=== PATIENT | female | born 1990 ===

== ENCOUNTER 2017-10-07 19:12 | Emergency (ER) | payer OTHER ==
[~2017-10-07] VITALS: Ht 157.5 cm; Wt 79.4 kg
[~2017-10-07 19:12] MED LIST: Percocet 5-3251 EACH PO
[2017-10-07 20:50] LABS: BASOPHILS ABSOLUTE AUTO 0.06 K/mm3 (0.00-0.23); BASOPHILS PERCENT AUTO 1 % (0-2); EOSINOPHILS ABSOLUTE AUTO 0.23 K/mm3 (0.00-0.68); EOSINOPHILS PERCENT AUTO 2 % (0-6); Hematocrit 42.5 % (33.0-51.0); Hemoglobin 14.3 g/dL (11.5-16.0); IMMATURE GRAN ABSOLUTE AUTO 0.03 K/mm3 (0.00-0.10); IMMATURE GRAN PERCENT AUTO 0 % (0-1); LYMPHOCYTES ABSOLUTE AUTO 3.23 K/mm3 (0.84-5.20); LYMPHOCYTES PERCENT AUTO 28 % (21-46); MONOCYTES ABSOLUTE AUTO 0.62 K/mm3 (0.16-1.47); MONOCYTES PERCENT AUTO 5 % (4-13); Mean Corpuscular HGB 29.3 pg (26.0-34.0); Mean Corpuscular HGB Conc 33.6 g/dL (31.5-36.5); Mean Corpuscular Volume 87 fL (80-100); Mean Platelet Volume 9.9 fL (9.1-12.4); NEUTROPHILS ABSOLUTE AUTO 7.23 K/mm3 (1.96-9.15); NEUTROPHILS PERCENT AUTO 64 % (41-73); Platelet Count 283 K/mm3 (150-400); RDW Coefficient Variation 12.9 % (11.7-14.2); RDW Standard Deviation 41.1 fL (35.1-46.3); Red Blood Cell Count 4.88 M/mm3 (3.80-5.20)
[2017-10-07 21:09] LABS: Alanine Aminotransfer (ALT/SGP 35 U/L (12-78); Albumin, Blood 3.9 g/dL (3.4-5.0); Alk Phos 101 U/L (50-136); Anion Gap 7 mmol/L (6-16); Aspartate Aminotrans (AST/SGOT 24 U/L (12-37); Bilirubin, Total 0.2 mg/dL (0.1-1.0); Blood Urea Nitrogen 8 mg/dL (8-24); CO2, Blood 24 mmol/L (21-32); Calcium, Blood 8.8 mg/dL (8.5-10.1); Chloride, Blood 110 mmol/L (98-108); Creatinine, Blood 0.67 mg/dL (0.40-1.00); Globulin, Blood 3.9 g/dL (2.2-4.0); Glomerular Filtration Rate >60 (60-); Glucose, Blood 75 mg/dL (70-99); Potassium, Blood 3.6 mmol/L (3.5-5.5); Sodium, Blood 141 mmol/L (136-145); Total Protein, Blood 7.8 g/dL (6.4-8.2)
== END 2017-10-07 23:02 | disposition home or self-care (01) ==
LOC: ER 19:12
PROVIDERS: Emergency Medicine
DX: R10.31 Right lower quadrant pain (principal); R39.9 Unspecified symptoms and signs involving the genitourinary system
CPT/HCPCS: 36415; 74176; 76830; 76856; 80053; 81000; 81025; 85025; 96374; 96375; 99284; J1170; J2405; J7030

== ENCOUNTER → 2021-11-05 | Outpatient (CLI) | payer OTHER ==
[2021-11-07 15:11] LABS: CHLAMYDIA TRACHOMATIS, NAA Negative (Negative)
== END | disposition home or self-care (01) ==
LOC: LAB SHORT 17:02 → LAB 17:02
PROVIDERS: Family Medicine
DX: Z01.419 Encounter for gynecological examination (general) (routine) without abnormal findings (principal); Z11.3 Encounter for screening for infections with a predominantly sexual mode of transmission
CPT/HCPCS: 87491; 87591; G0123

== ENCOUNTER 2022-03-03 21:55 | Emergency (ER) | payer OTHER ==
[~2022-03-03] VITALS: Ht 157.5 cm; Wt 81.7 kg
== END 2022-03-04 04:35 | disposition home or self-care (01) ==
LOC: ER 21:55
DX: H53.9 Unspecified visual disturbance (principal)
CPT/HCPCS: 70450; J1790; J1885

== ENCOUNTER 2022-05-26 12:56 | Emergency (ER) | payer OTHER ==
[~2022-05-26] VITALS: Ht 157.5 cm; Wt 90.3 kg
[2022-05-26] MEDS ORDERED: AMOCLA875 PO (15:06)
[2022-05-26] MEDS ORDERED: Tessalon200 MG PO (15:06)
[2022-05-26] MEDS ORDERED: Flonase 0.05% N16 GM (15:06)
== END 2022-05-26 15:18 | disposition home or self-care (01) ==
LOC: ER 12:56
DX: H66.93 Otitis media, unspecified, bilateral (principal); J06.9 Acute upper respiratory infection, unspecified; J40 Bronchitis, not specified as acute or chronic
CPT/HCPCS: 99282

== ENCOUNTER 2022-06-23 20:01 | Emergency (ER) | payer OTHER ==
[~2022-06-23] VITALS: Ht 157.5 cm; Wt 91.6 kg
[~2022-06-23 20:01] MED LIST changes: +AMOCLA875 PO; +Flonase 0.05% N16 GM; +Tessalon200 MG PO
[2022-06-23 21:34] LABS: Influenza B, PCR NEGATIVE (NEGATIVE); Resp Syncytial Virus, PCR NEGATIVE (NEGATIVE); SARS-Cov-2 (COVID-19) PCR, MMC NEGATIVE (NEGATIVE)
[2022-06-23 21:35] LABS: Influenza A, PCR POSITIVE (NEGATIVE)
== END 2022-06-23 20:55 | disposition left against medical advice (07) ==
LOC: ER 20:01
PROVIDERS: Emergency Medicine
DX: R05.9 Cough, unspecified (principal); R51.9 Headache, unspecified; R06.02 Shortness of breath; R50.9 Fever, unspecified; J02.9 Acute pharyngitis, unspecified; Z53.21 Procedure and treatment not carried out due to patient leaving prior to being seen by health care provider
CPT/HCPCS: 0241U

== ENCOUNTER 2022-11-25 00:43 | Emergency (ER) | payer OTHER ==
[~2022-11-25] VITALS: Ht 162.6 cm; Wt 113.4 kg
[2022-11-25] MEDS ORDERED: CELEXA10 MG PO (01:41)
[2022-11-25 02:29] VITALS: BP 121/78
== END 2022-11-25 02:27 | disposition home or self-care (01) ==
LOC: ER 00:43
DX: J34.89 Other specified disorders of nose and nasal sinuses (principal); F14.90 Cocaine use, unspecified, uncomplicated
CPT/HCPCS: 99282; A9270; J2001

== ENCOUNTER 2023-06-08 03:31 | Emergency (ER) | payer OTHER ==
[~2023-06-08] VITALS: Ht 157.5 cm; Wt 90.7 kg
[~2023-06-08 03:31] MED LIST changes: +CELEXA10 MG PO
[2023-06-08 04:15] VITALS: BP 120/105
[2023-06-08] MEDS ORDERED: Veetids 500500 MG PO (04:57)
== END 2023-06-08 05:02 | disposition home or self-care (01) ==
LOC: ER 03:31
DX: K02.9 Dental caries, unspecified (principal); K04.7 Periapical abscess without sinus; K01.1 Impacted teeth; Z79.899 Other long term (current) drug therapy
CPT/HCPCS: 96372; 99282-25; A9270; J1885

== ENCOUNTER 2023-07-21 14:05 | Emergency (ER) | payer OTHER ==
[~2023-07-21] VITALS: Ht 157.5 cm; Wt 86.2 kg
[~2023-07-21 14:05] MED LIST changes: +Veetids 500500 MG PO
[2023-07-21 14:43] VITALS: BP 127/96
[2023-07-21] MEDS ORDERED: Ultram50 MG PO (14:46)
[2023-07-21] MEDS ORDERED: AMOCLA875 PO (14:46)
== END 2023-07-21 14:46 | disposition home or self-care (01) ==
LOC: ER 14:05
DX: K04.7 Periapical abscess without sinus (principal); Z79.899 Other long term (current) drug therapy
CPT/HCPCS: 99282

== ENCOUNTER 2023-08-17 15:00 | Emergency (ER) | payer OTHER ==
[~2023-08-17] VITALS: Ht 157.5 cm; Wt 90.7 kg
[~2023-08-17 15:00] MED LIST changes: +Ultram50 MG PO
[2023-08-17 15:16] VITALS: BP 134/96
[2023-08-17 17:48] LABS: BASOPHILS ABSOLUTE AUTO 0.07 K/mm3 (0.00-0.23); BASOPHILS PERCENT AUTO 1 % (0-2); EOSINOPHILS ABSOLUTE AUTO 0.04 K/mm3 (0.00-0.68); EOSINOPHILS PERCENT AUTO 0 % (0-6); Hematocrit 38.8 % (33.0-51.0); Hemoglobin 13.5 g/dL (11.5-16.0); IMMATURE GRAN ABSOLUTE AUTO 0.04 K/mm3 (0.00-0.10); IMMATURE GRAN PERCENT AUTO 0 % (0-1); LYMPHOCYTES ABSOLUTE AUTO 2.67 K/mm3 (0.84-5.20); LYMPHOCYTES PERCENT AUTO 18 % (21-46); MONOCYTES ABSOLUTE AUTO 0.84 K/mm3 (0.16-1.47); MONOCYTES PERCENT AUTO 6 % (4-13); Mean Corpuscular HGB 30.4 pg (26.0-34.0); Mean Corpuscular HGB Conc 34.8 g/dL (31.5-36.5); Mean Corpuscular Volume 87 fL (80-100); Mean Platelet Volume 9.6 fL (9.1-12.4); NEUTROPHILS ABSOLUTE AUTO 11.55 K/mm3 (1.96-9.15); NEUTROPHILS PERCENT AUTO 76 % (41-73); Platelet Count 295 K/mm3 (150-400); RDW Coefficient Variation 12.6 % (11.7-14.2); RDW Standard Deviation 40.2 fL (35.1-46.3); Red Blood Cell Count 4.44 M/mm3 (3.80-5.20); White Blood Cell Count 15.21 K/mm3 (4.00-11.30)
[2023-08-17 18:02] LABS: Albumin, Blood 4.1 g/dL (3.4-5.0); Albumin/Globulin Ratio 1.2 (0.8-1.8); Bilirubin, Total 0.6 mg/dL (0.1-1.0); Creatinine, Blood 0.64 mg/dL (0.40-1.00); Globulin, Blood 3.3 g/dL (2.2-4.0); Potassium, Blood 3.3 mmol/L (3.5-5.5); Total Protein, Blood 7.4 g/dL (6.4-8.2)
[2023-08-17 18:06] LABS: Influenza A, PCR NEGATIVE (NEGATIVE); Influenza B, PCR NEGATIVE (NEGATIVE); Resp Syncytial Virus, PCR NEGATIVE (NEGATIVE); SARS-Cov-2 (COVID-19) PCR, MMC NEGATIVE (NEGATIVE)
== END 2023-08-17 20:00 | disposition home or self-care (01) ==
LOC: ER 15:00
PROVIDERS: Student in an Organized Health Care Education/Training Program
DX: R07.89 Other chest pain (principal); J34.89 Other specified disorders of nose and nasal sinuses
CPT/HCPCS: 0241U; 71046; 80053; 84484; 85025; 93005; 93010; 99284-25

== ENCOUNTER → 2023-08-22 | Outpatient (CLI) | payer OTHER | END | disposition home or self-care (01) | LOC: LAB SHORT 13:59 → LAB 13:59 | DX: R30.0 Dysuria (principal) | CPT/HCPCS: 87086 ==

== ENCOUNTER → 2024-11-05 | Outpatient (CLI) | payer OTHER | LOC: LAB SHORT 19:43 → LAB 19:43 | DX: Z34.80 Encounter for supervision of other normal pregnancy, unspecified trimester (principal) | CPT/HCPCS: 87081; 87150 ==

== ENCOUNTER 2024-11-11 06:30 | Inpatient (IN) | payer OTHER ==
[~2024-11-11] VITALS: Ht 157.5 cm; Wt 112.3 kg
[2024-11-11] VITALS (18 sets, daily range): BP systolic 100–134; BP diastolic 57–84
[2024-11-11] MEDS ORDERED: Acetaminophen 500 MG Tab PO PRN (07:10)
[2024-11-11] MEDS ORDERED: Carboprost Tromethamine 250 MCG/ML 1ML Amp IM PRN (07:10)
[2024-11-11] MEDS ORDERED: Misoprostol 200 MCG Tab BC PRN (07:10)
[2024-11-11] MEDS ORDERED: Oxytocin 10 Unit / ML Vial IM PRN (07:10)
[2024-11-11] MEDS ORDERED: Ondansetron HCl 2 MG / ML 2ML Vial IV PRN (07:10)
[2024-11-11] MEDS ORDERED: OXYTOCIN/RINGER'S LACTATE 500 ML IV PRN (07:10)
[2024-11-11] MEDS ORDERED: Misoprostol 200 MCG Tab PR PRN (07:10)
[2024-11-11] MEDS ORDERED: Tranexamic Acid 100 ML IV SCH (07:10)
[2024-11-11] MEDS ORDERED: Methylergonovine Maleate 0.2MG / ML 1ML Amp IM PRN (07:10)
[2024-11-11] MEDS ORDERED: Lactated Ringer's 1,000 ML IV PRN ×3 (07:10→07:15)
[2024-11-11] MEDS ORDERED: ePHEDrine Sulfate 50 MG/ML 1ML Injection XX PRN (07:10)
[2024-11-11] MEDS ORDERED: FentaNYL 2mcg/ml-Bup 0.1% Epd 250 ML EPI PRN (07:10)
[2024-11-11] MEDS ORDERED: FentaNYL Citrate 50 MCG/ML 2 ML Injection IV PRN (07:15)
[2024-11-11] MEDS ORDERED: Calcium Carbonate 500 MG Tab Chew PO PRN (07:15)
[2024-11-11 07:59] LABS: BASOPHILS ABSOLUTE AUTO 0.03 K/mm3 (0.00-0.23); BASOPHILS PERCENT AUTO 0 % (0-2); EOSINOPHILS ABSOLUTE AUTO 0.11 K/mm3 (0.00-0.68); EOSINOPHILS PERCENT AUTO 1 % (0-6); Hematocrit 34.3 % (33.0-51.0); Hemoglobin 11.6 g/dL (11.5-16.0); IMMATURE GRAN ABSOLUTE AUTO 0.04 K/mm3 (0.00-0.10); IMMATURE GRAN PERCENT AUTO 0 % (0-1); LYMPHOCYTES ABSOLUTE AUTO 2.25 K/mm3 (0.84-5.20); LYMPHOCYTES PERCENT AUTO 20 % (21-46); MONOCYTES ABSOLUTE AUTO 0.78 K/mm3 (0.16-1.47); MONOCYTES PERCENT AUTO 7 % (4-13); Mean Corpuscular HGB 28.6 pg (26.0-34.0); Mean Corpuscular HGB Conc 33.8 g/dL (31.5-36.5); Mean Corpuscular Volume 85 fL (80-100); Mean Platelet Volume 10.6 fL (9.1-12.4); NEUTROPHILS ABSOLUTE AUTO 8.19 K/mm3 (1.96-9.15); NEUTROPHILS PERCENT AUTO 72 % (41-73); Platelet Count 313 K/mm3 (150-400); RDW Coefficient Variation 13.2 % (11.7-14.2); RDW Standard Deviation 40.5 fL (35.1-46.3); Red Blood Cell Count 4.06 M/mm3 (3.80-5.20)
[2024-11-11] MEDS ORDERED: PRENATAL TABLE1 EAC2 PO (08:46)
[2024-11-11] MEDS ORDERED: Lactated Ringer's 1,000 ML IV SCH (13:20)
[2024-11-11] MEDS ORDERED: OXYTOCIN/RINGER'S LACTATE 500 ML IV SCH (13:20)
[2024-11-12] VITALS (16 sets, daily range): BP systolic 101–130; BP diastolic 57–72
[2024-11-12] MEDS ORDERED: CeFAZolin Sodium 2,000 MG in NS 100 ML IV SCH (17:35)
[2024-11-12 18:26] LABS: PCO2 Cord - Arterial 79.9 mmHg (40-50); PCO2 Cord - Venous 50.1 mmHg (40-50); PO2 Cord - Arterial 16.8 mmHg (16-20); pH Cord - Arterial 7.12 (7.28-7.35); pH Umbilical Cord - Venous 7.28 (7.26-7.35)
[2024-11-12 18:27] LABS: PO2 Cord - Venous 26.1 mmHg (28-32)
[2024-11-12] MEDS ORDERED: Ketorolac Tromethamine 30mg Vial IV PRN (19:15)
[2024-11-12] MEDS ORDERED: Ibuprofen 400 MG Tab PO PRN (19:15)
[2024-11-12] MEDS ORDERED: Lactated Ringer's 1,000 ML IV SCH (19:15)
[2024-11-12] MEDS ORDERED: OXYTOCIN/RINGER'S LACTATE 500 ML IV PRN (19:15)
[2024-11-12] MEDS ORDERED: Misoprostol 200 MCG Tab PR PRN (19:15)
[2024-11-12] MEDS ORDERED: Witch Hazel/Glycerin PADS TOP PRN (19:15)
[2024-11-12] MEDS ORDERED: Acetaminophen 500 MG Tab PO PRN (19:20)
[2024-11-12] MEDS ORDERED: Benzocaine Topical Anesthetic Spray 60GM TOP PRN (19:20)
[2024-11-13 02:16] VITALS: BP 109/62
[2024-11-13 07:32] VITALS: BP 103/52
[2024-11-13 07:38] LABS: BASOPHILS ABSOLUTE AUTO 0.03 K/mm3 (0.00-0.23); BASOPHILS PERCENT AUTO 0 % (0-2); EOSINOPHILS ABSOLUTE AUTO 0.11 K/mm3 (0.00-0.68); EOSINOPHILS PERCENT AUTO 1 % (0-6); Hematocrit 28.6 % (33.0-51.0); Hemoglobin 9.5 g/dL (11.5-16.0); IMMATURE GRAN ABSOLUTE AUTO 0.08 K/mm3 (0.00-0.10); IMMATURE GRAN PERCENT AUTO 0 % (0-1); LYMPHOCYTES ABSOLUTE AUTO 2.15 K/mm3 (0.84-5.20); LYMPHOCYTES PERCENT AUTO 12 % (21-46); MONOCYTES ABSOLUTE AUTO 1.49 K/mm3 (0.16-1.47); MONOCYTES PERCENT AUTO 8 % (4-13); Mean Corpuscular HGB Conc 33.2 g/dL (31.5-36.5); Mean Corpuscular Volume 87 fL (80-100); Mean Platelet Volume 10.6 fL (9.1-12.4); NEUTROPHILS ABSOLUTE AUTO 14.13 K/mm3 (1.96-9.15); NEUTROPHILS PERCENT AUTO 79 % (41-73); Platelet Count 225 K/mm3 (150-400); RDW Coefficient Variation 13.5 % (11.7-14.2); RDW Standard Deviation 42.2 fL (35.1-46.3); Red Blood Cell Count 3.28 M/mm3 (3.80-5.20); White Blood Cell Count 17.99 K/mm3 (4.00-11.30)
[2024-11-13] MEDS ORDERED: Prenatal Vit/FE Fumarate/FA 1 Tab PO SCH (09:00)
[2024-11-13] MEDS ORDERED: Polyethylene Glycol 3350 17 gm PO PRN (11:10)
[2024-11-13 11:13] VITALS: BP 111/66
[2024-11-13 15:03] VITALS: BP 124/83
[2024-11-13 20:59] VITALS: BP 110/64
[2024-11-13 23:18] VITALS: BP 95/62
--- NOTE | 2024-11-14 06:31 | NUR ---
CARED FOR PATIENT FOR DURATION OF THIS SHIFT. INITIALLY WAS EXPRESSING 7/10 SCHERER AND 9/10 BODY PAINS, APAP AND IBU ADMINISTERED PER ORDER AND PT REPORTED RELIEF WITH NO FURTHER COMPLAINTS THROUGHOUT THE NIGHT. ASSISTED PT WITH EACH FEED THIS SHIFT AND SUPPLEMENTING WITH DBM VIA SNS SYSTEM. PT IS ENGAGED AND PATIENT WITH AND LEARNING PROCESS. PT IS MOST SUCCESSFUL IN THE FOOTBALL HOLD ON THE RIGHT BREAST. PT RESTING IN BED AT THIS TIME WITH IN CRIB AT BEDSIDE.
[2024-11-14 09:55] VITALS: BP 119/76
[2024-11-14 11:48] VITALS: BP 123/77
[2024-11-14] MEDS ORDERED: IBU800 MG PO (14:46)
[2024-11-14 16:46] VITALS: BP 124/75
== END 2024-11-14 17:40 | disposition home or self-care (01) | DRG 805 ==
LOC: OBS 06:30 → BC 06:36 → OBS 07:01 → BC 07:06
PROVIDERS: ADMIT Family Medicine
PROC: 10E0XZZ Delivery of Products of Conception, External Approach (ICD-10-PCS; principal; 2024-11-12)
PROC: 10H07YZ Insertion of Other Device into Products of Conception, Via Natural or Artificial Opening (ICD-10-PCS; 2024-11-12)
PROC: 4A1HXCZ Monitoring of Products of Conception, Cardiac Rate, External Approach (ICD-10-PCS; 2024-11-12)
PROC: 10H073Z Insertion of Monitoring Electrode into Products of Conception, Via Natural or Artificial Opening (ICD-10-PCS; 2024-11-12)
PROC: 3E0R3BZ Introduction of Anesthetic Agent into Spinal Canal, Percutaneous Approach (ICD-10-PCS; 2024-11-12)
PROC: 00HU33Z Insertion of Infusion Device into Spinal Canal, Percutaneous Approach (ICD-10-PCS; 2024-11-12)
DX: O42.013 Preterm premature rupture of membranes, onset of labor within 24 hours of rupture, third trimester (principal); O41.1230 Chorioamnionitis, third trimester, not applicable or unspecified; Z37.0 Single live birth; O99.344 Other mental disorders complicating childbirth; O66.0 Obstructed labor due to shoulder dystocia; O99.214 Obesity complicating childbirth; F41.8 Other specified anxiety disorders; Z90.89 Acquired absence of other organs; Z87.891 Personal history of nicotine dependence; Z79.899 Other long term (current) drug therapy; Z3A.36 36 weeks gestation of pregnancy; E66.01 Morbid (severe) obesity due to excess calories
CPT/HCPCS: 36415; 51702; 82803; 85025; 86850; 86900; 86901; 86923; 99214; A9270; J0690; J1885; J2405; J2590; J7120